=== PATIENT | male | born 1955 | race Hispanic/Latino ===

== ENCOUNTER → 2017-12-07 | Outpatient (CLI) | payer OTHER | LOC: YCFC.O 05:23 | PROVIDERS: ATTEND Family Medicine | DX: E11.9 Type 2 diabetes mellitus without complications (principal); I10 Essential (primary) hypertension; R35.1 Nocturia; R53.83 Other fatigue ==

== ENCOUNTER → 2017-12-27 | Outpatient (CLI) | payer OTHER | LOC: YCFC.O 20:38 | PROVIDERS: ATTEND Family Medicine | DX: R94.6 Abnormal results of thyroid function studies (principal) ==

== ENCOUNTER 2018-01-28 09:50 | Emergency (ER) | payer OTHER ==
--- NOTE | 2018-01-28 10:11 | ED.PDOC ---
History of Present Illness - General Chief Complaint: Diabetic Complaint Stated Complaint: lt heel pain Time Seen by Provider: 01/28/18 10:10 Source: patient Exam Limitations: no limitations - History of Present Illness Initial Comments: Ghulam Hanks 63 y/o male came to er with skin sore left heel area after it rubbed on his newly bought shoes the last 2 days.Stated he is diabetic and migh get worse. Timing/Duration: other - see hpi Severity: moderate Improving Factors: rest Worsening Factors: other - walking Associated Symptoms: other - see hpi Allergies/Adverse Reactions: Allergies Cephalexin [From Keflex] Adverse Reaction (Mild, Verified 01/28/18 10:08) Other body turned red Home Medications: Ambulatory Orders Acetaminophen W/ Codeine [Tylenol w/Codeine 300-30 mg] 1 tab PO TID PRN #14 tab 01/28/18 Ciprofloxacin [Cipro] 500 mg PO BID 10 Days #20 tab 01/28/18 Metformin HCl 01/28/18 Quinapril HCl 01/28/18 Review of Systems - Review of Systems Neurological: States: see HPI All other Systems: Reviewed and Negative, No Change from Baseline Past Medical History (General) - Patient Medical History Hx Seizures: No Hx Stroke: No Hx Asthma: No Hx of COPD: No Hx Cardiac Disorders: No Hx Congestive Heart Failure: No Hx Hypertension: Yes Hx Thyroid Disease: No Hx Diabetes: Yes Hx Cancer: No Surgical History: no surgical history - Vaccination History Hx Influenza Vaccination: Yes Immunizations Up to Date: Yes - Social History Hx Tobacco Use: Yes Hx Alcohol Use: Yes Hx Physical Abuse: No Hx Emotional Abuse: No - Triage Comment ED Triage Comment: pt walked in with bandaid to lt posterior heel. Family Medical History - Family History Mother Living Status: Unknown Hx Family Diabetes: Yes - siblings Hx Family;Other: diabetic- lost digits Physical Exam - Physical Exam General Appearance: Alert, Comfortable, No apparent distress Eye Exam: bilateral normal Ears, Nose, Throat: hearing grossly normal, normal ENT inspection Neck: non-tender, normal inspection Respiratory: chest non-tender, lungs clear, normal breath sounds Cardiovascular/Chest: normal peripheral pulses, regular rate, rhythm, no murmur Peripheral Pulses: radial,right: 2+, radial,left: 2+ Gastrointestinal/Abdominal: non tender, soft, no organomegaly Back Exam: normal inspection, no CVA tenderness, no vertebral tenderness Extremity: non-tender, no pedal edema, no calf tenderness Neurologic: no motor/sensory deficits, alert, oriented x 3 Skin Exam: normal color, warm/dry, other - pustule with surrounding erythema back of left heel Progress - Progress Progress: 01/28/18 10:30 Vital Signs - 8 hr 01/28/18 10:00 Temperature 98.5 F Pulse Rate [ 91 H Left Brachial] Respiratory 20 Rate Blood Pressure 168/98 [Left Arm] O2 Sat by Pulse 97 Oximetry Departure - Departure Clinical Impression: Infected abrasion of heel Qualifiers: Encounter type: initial encounter Laterality: left Qualified Code(s): S90.812A - Abrasion, left foot, initial encounter; L08.9 - Local infection of the skin and subcutaneous tissue, unspecified Time of Disposition: 10:32 Disposition: Discharge to Home or Self Care Condition: Good Departure Forms: ED Discharge - Pt. Copy, Patient Portal Self Enrollment Instructions: DI for Diabetes Type 2, Wound Infection Referrals: Ahmet Byers MD [Primary Care Provider] - 1-2 Weeks Prescriptions: Acetaminophen W/ Codeine [Tylenol w/Codeine 300-30 mg] 1 tab PO TID PRN #14 tab PRN Reason: Pain Ciprofloxacin [Cipro] 500 mg PO BID 10 Days #20 tab Home Medications: Ambulatory Orders Acetaminophen W/ Codeine [Tylenol w/Codeine 300-30 mg] 1 tab PO TID PRN #14 tab 01/28/18 Ciprofloxacin [Cipro] 500 mg PO BID 10 Days #20 tab 01/28/18 Metformin HCl 01/28/18 Quinapril HCl 01/28/18 Additional Instructions: Follow up with primary Md 01 Feb 2018 if needed
[2018-01-28] MEDS ORDERED: NEOMYCIN-BACITRACIN-POLYMYXIN 0.9 GM UD TOP ONE (10:18)
[2018-01-28 10:29] VITALS: BP 168/98; TEMP 98.5
[2018-01-28] MEDS ORDERED: TETANUS,DIPHTHERIA,PERTUSSIS 1 EA SYG IM ONE (10:30)
[2018-01-28 11:06] VITALS: O2SAT 98
== END 2018-01-28 10:55 | disposition home or self-care (01) ==
LOC: ER 09:50
DX: S90.812A Abrasion, left foot, initial encounter (principal); L08.9 Local infection of the skin and subcutaneous tissue, unspecified; E11.9 Type 2 diabetes mellitus without complications; I10 Essential (primary) hypertension; Z87.891 Personal history of nicotine dependence; Z88.1 Allergy status to other antibiotic agents; Z79.84 Long term (current) use of oral hypoglycemic drugs; Z79.899 Other long term (current) drug therapy; X58.XXXA Exposure to other specified factors, initial encounter; Y92.9 Unspecified place or not applicable; Z23 Encounter for immunization